=== PATIENT | female | born 1995 | race Caucasian/White ===

== ENCOUNTER 2016-11-19 11:01 | Emergency (ER) | payer BC ==
--- NOTE | 2016-11-19 11:58 | EDPHY ---
H & P Stated Complaint: crampy epigastric pain intermittent over the last 2 months Time Seen by Provider: 11/19/16 11:39 HPI/ROS: CHIEF COMPLAINT: URI symptoms x7 days, epigastric abdominal pain x2 months HISTORY OF PRESENT ILLNESS: 21-year-old female with remote history of cholecystectomy in the ER via private vehicle complaining of 7 days of URI symptoms, cough, congestion which appeared to have exacerbated her 2 months of epigastric and lower chest pain. Regarding her URI symptoms her symptoms including nasal congestion, cough, sore throat. The cough is non productive. She is a non cigarette smoker. Her boyfriend was sick recently with similar as well. Regarding her epigastric and lower chest pain this has been intermittent for the past 2 months. She does have a history of cholecystectomy 3 years ago and notes that with lower fat foods she is generally asymptomatic however will have reproducible symptoms when she is eating high fat foods. The pain in her epigastrium does not radiate to her back. She will sometimes note irritation if she is drinking alcohol as well. No nausea or vomiting. No melena or hematochezia. Atraumatic. No exogenous estrogen use. PRIMARY CARE PROVIDER: none REVIEW OF SYSTEMS: A ten point review of systems was performed and is negative with the exception of the items mentioned in the HPI PAST MEDICAL & SURGICAL HISTORY: Right history of cholecystectomy SOCIAL HISTORY: nontobacco user. Non cocaine use. Moved from [place] 2 months ago FAMILY HISTORY: No family history of coagulopathic disorder or premature coronary artery disease. PHYSICAL EXAM (Prior to examination, patient consented to physical exam, hands were washed and my usual and customary physical exam procedures followed) 1) GENERAL: Well-developed, well-nourished, alert and oriented. Appears to be in no acute distress. 2) HEAD: Normocephalic, atraumatic 3) HEENT: Pupils equal, round, reactive to light bilaterally. Sclera anicteric. Nasopharynx, oropharynx, clear, no lesions. No tonsillar enlargement or exudate. No trismus no drooling. Ears bilaterally with normal tympanic membranes. 4) NECK: Full range of motion, no meningeal signs. 5) LUNGS: Clear auscultation bilaterally, no wheezes, no rhonchi, no retractions. 6) HEART: Regular rate and rhythm, no murmur, no heave, no gallop. 7) ABDOMEN: No guarding, tender to palpation midline epigastrium, negative McBurney's, negative Miller's, negative Rovsing's, negative peritoneal sign, 8) MUSCULOSKELETAL: Moving all extremities, no focal areas of tenderness, no obvious trauma. No peripheral edema or discoloration. 9) BACK: No CVA tenderness, no midline vertebral tenderness, no fluctuance, no step-off, no obvious trauma, no visual or palpable abnormality. 10) SKIN: No rash, no petechiae. 11) Psychiatric: Patient is oriented X 3, there is no agitation. DIFFERENTIAL DIAGNOSIS: in no particular include but limited to acute pancreatitis, pneumonia, bronchitis, pulmonary embolus - Personal History LMP (Females 10-55): 1-7 Days Ago Current Tetanus/Diphtheria Vaccine: Yes - Medical/Surgical History Hx Asthma: No Hx Chronic Respiratory Disease: No Hx Diabetes: No Hx Cardiac Disease: No Hx Renal Disease: No Hx Cirrhosis: No Hx Alcoholism: No Hx HIV/AIDS: No Hx Splenectomy or Spleen Trauma: No Other PMH: choly - Social History Smoking Status: Never smoked Constitutional: Initial Vital Signs Temperature (C) 36.5 C 11/19/16 11:07 Heart Rate 74 11/19/16 11:07 Respiratory Rate 20 11/19/16 11:07 Blood Pressure 118/94 H 11/19/16 11:07 O2 Sat (%) 98 11/19/16 11:07 O2 Delivery Mode Room Air Allergies/Adverse Reactions: No Known Allergies Allergy (Unverified 11/19/16 11:06) Home Medications: Medication Instructions Recorded AZITHROMYCIN [Z-PACK] 500 mg PO DAILY #1 packet 11/19/16 Albuterol [Proventil Inhaler HFA 1 - 2 puffs IH Q4PRN PRN #1 mdi 11/19/16 (*)] Benzonatate [Tessalon Pearles (RX)] 200 mg PO TID PRN #15 cap 11/19/16 Pantoprazole Sodium [Protonix 40mg 40 mg PO DAILY #30 tab 11/19/16 (RX)] Sudafed 12-Hour 11/19/16 Medical Decision Making - Diagnostics Imaging: PA and Lateral Chest November 19, 2016 Indication: Chest pain and cough. Headache. Findings: The lungs are well-aerated and clear except for minimal diffuse peribronchial thickening. No pneumothorax, airspace consolidation, edema or effusion. Heart size is normal. The thoracic spine has minimal biphasic curvature. Impression: Minimal bronchitis. Otherwise normal. Dictated By: Ld Bush MD Images reviewed by myself ED Course/Re-evaluation: This patient was re-evaluated with serial examinations most recently at 2:20 p.m.. Discussed her diagnostic results. I think that pulmonary embolus less likely in this patient. Doubt acute surgical abdominal pathology. I do not think that emergent imaging specifically her abdomen is currently indicated. We had a lengthy discussion regarding dietary changes as she notes that her symptoms are worse with certain foods and drinks. Recommended low-fat, bland foods, avoiding alcohol, soda similar. Starting her on a proton pump inhibitor. Recommend GI follow-up. Recommend establish primary care follow-up as she will need to have her LFTs recheck. Usual and customary respiratory and abdominal precautions provided to the patient. Discussed case with Dr Berger in ER. - Data Points Laboratory Results: Laboratory Results 11/19/16 12:25 11/19/16 12:25 11/19/16 11/19/16 11/19/16 13:30 12:30 12:25 WBC 10.88 H 10^3/uL (3.80-9.50) RBC 5.50 H 10^6/uL (4.18-5.33) Hgb 16.7 H g/dL (12.6-16.3) Hct 47.3 H % (38.0-47.0) MCV 86.0 fL (81.5-99.8) MCH 30.4 pg (27.9-34.1) MCHC 35.3 g/dL (32.4-36.7) RDW 12.7 % (11.5-15.2) Plt Count 242 10^3/uL (150-400) MPV 9.1 fL (8.7-11.7) Neut % (Auto) 63.2 % (39.3-74.2) Lymph % (Auto) 24.9 % (15.0-45.0) Moore % (Auto) 7.3 % (4.5-13.0) Eos % (Auto) 3.8 % (0.6-7.6) Baso % (Auto) 0.5 % (0.3-1.7) Nucleat RBC Rel Count 0.0 % (0.0-0.2) Absolute Neuts (auto) 6.89 H 10^3/uL (1.70-6.50) Absolute Lymphs (auto) 2.71 10^3/uL (1.00-3.00) Absolute Monos (auto) 0.79 10^3/uL (0.30-0.80) Absolute Eos (auto) 0.41 H 10^3/uL (0.03-0.40) Absolute Basos (auto) 0.05 10^3/uL (0.02-0.10) Absolute Nucleated RBC 0.00 10^3/uL (0-0.01) Immature Gran % 0.3 % (0.0-1.1) Immature Gran # 0.03 10^3/uL (0.00-0.10) D-Dimer 0.31 ug/mLFEU (0.00-0.50) Sodium 142 mEq/L (134-144) Potassium 4.9 mEq/L (3.5-5.2) Chloride 109 mEq/L (97-110) Carbon Dioxide 16 L mEq/l (22-31) Anion Gap 17 mEq/L (8-16) BUN 10 mg/dL (7-23) Creatinine 0.7 mg/dL (0.6-1.0) Estimated GFR > 60 Glucose 77 mg/dL (70-100) Calcium 9.5 mg/dL (8.5-10.4) Total Bilirubin 1.2 mg/dL (0.1-1.4) Conjugated Bilirubin 0.5 mg/dL (0.0-0.5) Unconjugated Bilirubin 0.7 mg/dL (0.0-1.1) AST 130 H IU/L (14-46) ALT 88 H IU/L (9-52) Alkaline Phosphatase 106 IU/L (38-126) Total Protein 7.5 g/dL (6.3-8.2) Albumin 4.0 g/dL (3.5-5.0) Lipase 45.0 IU/L (23-300) Beta HCG, Qual NEGATIVE Influenza Typ A,B (DFA) NEGATIVE FOR FLU (NEGATIVE) Medications Given: Discontinued Medications Sodium Chloride (Ns) 1,000 mls @ 0 mls/hr IV ONCE ONE PRN Reason: Wide Open Stop: 11/19/16 12:31 Last Admin: 11/19/16 12:30 Dose: 1,000 mls Departure - Departure Disposition: Home, Routine, Self-Care Clinical Impression: Bronchitis, Elevated LFTs Condition: Good Instructions: Acute Bronchitis (ED) Additional Instructions: You need to have your liver function test further evaluated and retested. I recommend to establish care with a primary care provider and follow up with a gis developer as well. This information is in the packet we gave you. Referrals: Nicola Graves MD [Medical Doctor] - 5-7 days, call for appt. (Dr. Graves is a gis developer) Brigitte Moses MD [Medical Doctor] - 2-3 days, call for appt. (Dr Moses is a primary care provider) Prescriptions: Pantoprazole Sodium [Protonix 40mg (RX)] 40 mg PO DAILY #30 tab Albuterol [Proventil Inhaler HFA (*)] 1 - 2 puffs IH Q4PRN PRN #1 mdi PRN Reason: Cough, Moderate Benzonatate [Tessalon Pearles (RX)] 200 mg PO TID PRN #15 cap PRN Reason: Cough, Moderate AZITHROMYCIN [Z-PACK] 500 mg PO DAILY #1 packet
--- NOTE | 2016-11-19 12:03 | CPEKG ---
Heart Rate: 74 RR Interval: 811 P-R Interval: 136 QRSD Interval: 86 QT Interval: 396 QTC Interval: 440 P [place]: 15 QRS [place]: 58 T Wave [place]: 42 EKG Severity - NORMAL ECG - EKG Impression: SINUS RHYTHM Electronically Signed By: Sumaya Berger 19-Nov-2016 15:06:57
[2016-11-19] MEDS ORDERED: NS 1,000 ML IV ONE (12:30)
[2016-11-19 12:35] VITALS: RESP 16
--- NOTE | 2016-11-19 12:51 | DX ---
PA and Lateral Chest November 19, 2016 Indication: Chest pain and cough. Headache. Findings: The lungs are well-aerated and clear except for minimal diffuse peribronchial thickening. N o pneumothorax, airspace consolidation, edema or effusion. Heart size is normal. The thoracic spine h as minimal biphasic curvature. Impression: Minimal bronchitis. Otherwise normal.
[2016-11-19 13:04] LABS: % IMMATURE GRANULYOCYTES 0.3 % (0.0-1.1); ABSOLUTE IMMATURE GRANULOCYTES 0.03 10^3/uL (0.00-0.10); ADD DIFF? NO; ADD MORPH? NO; ADD SCAN? YES; ATYPICAL LYMPHOCYTE FLAG 20 (0-99); FRAGMENT RBC FLAG 0 (0-99); HEMATOCRIT 47.3 % (38.0-47.0); HEMOGLOBIN 16.7 g/dL (12.6-16.3); LEFT SHIFT FLG 0 (0-99); LIPEMIA HEMOLYSIS FLAG 90 (0-99); MEAN CELL HEMOGLOBIN 30.4 pg (27.9-34.1); MEAN CELL HEMOGLOBIN CONCENTR. 35.3 g/dL (32.4-36.7); MEAN PLATELET VOLUME 9.1 fL (8.7-11.7); PLATELET COUNT 242 10^3/uL (150-400); RED CELL DISTRIBUTION WIDTH 12.7 % (11.5-15.2)
[2016-11-19 13:15] LABS: PLATELET CLUMPS FLAG 300 (0-99)
[2016-11-19 13:40] LABS: SCAN NEGATIVE
[2016-11-19 13:51] LABS: ALANINE AMINOTRANSFERASE 88 IU/L (9-52); ALKALINE PHOSPHATASE 106 IU/L (38-126); ANION GAP 17 mEq/L (8-16); ASPARTATE AMINOTRANSFERASE 130 IU/L (14-46); BILIRUBIN,TOTAL 1.2 mg/dL (0.1-1.4); BILIRUBIN-CONJUGATED 0.5 mg/dL (0.0-0.5); BILIRUBIN-UNCONJUGATED 0.7 mg/dL (0.0-1.1); CALCIUM 9.5 mg/dL (8.5-10.4); CARBON DIOXIDE 16 mEq/l (22-31); CHLORIDE 109 mEq/L (97-110); CREATININE 0.7 mg/dL (0.6-1.0); GLOMERULAR FILTRATION RATE > 60; GLUCOSE 77 mg/dL (70-100); POTASSIUM 4.9 mEq/L (3.5-5.2); SODIUM 142 mEq/L (134-144); TOTAL PROTEIN 7.5 g/dL (6.3-8.2)
[2016-11-19 14:49] VITALS: BP 139/97; PULSE 77; TEMP 97.5; O2SAT 97
== END 2016-11-19 14:48 | disposition home or self-care (01) ==
DX: J20.9 Acute bronchitis, unspecified (principal); R94.5 Abnormal results of liver function studies; Z90.49 Acquired absence of other specified parts of digestive tract